=== PATIENT | female | born 1965 | race Caucasian/White ===

== ENCOUNTER 2022-07-27 18:49 | Emergency (ER) | payer OTHER, SELFPAY ==
--- NOTE | ~2022-07-27 | CT_ITS ---
EXAMINATION: CT cervical spine wo con DATE: 07/27/2022 20:07 INDICATION: Neck pain, tender over C6-7 TECHNIQUE: Computed tomography (CT) of the cervical spine was performed without intravenous contrast. Automated exposure control and iterative reconstruction technique were employed. The dose-length pro duct was 157.05 mGy-cm. COMPARISON: None FINDINGS: Vertebral Body Alignment: Intact. Craniocervical and atlantoaxial alignment: Moderate degenerative change. Alignment intact. Osseous structures/fracture: No evidence of a lytic or blastic process in the visualized spine. No e vidence of acute fracture. Cervical soft tissues: The paraspinal soft tissues planes are maintained. Biapical pleural scarring. Mild interlobular septal thickening as can be seen with interstitial edema. Degenerative changes: Moderate degenerative change and uncovertebral joint hypertrophy at C6-7, where there is also moderate central canal stenosis and severe bilateral neural foraminal narrowing. IMPRESSION: No acute fracture or traumatic malalignment in the cervical spine. Reviewed, dictated and finalized at location K.
--- NOTE | ~2022-07-27 | XR_ITS ---
EXAM: XR shoulder LT min 2V DATE: 07/27/2022 19:59 HISTORY: Shoulder pain, eval for dislocation vs fracture . COMPARISON: None available. FINDINGS: Normal mineralization. Comminuted fracture of the proximal left humerus involving portions of the greater and lesser trochanters. Anteroinferior dislocation of the humeral head. No lytic or b lastic lesion. Joint spaces are maintained. No erosion or periosteal change. Soft tissues within norm al limits. IMPRESSION: Comminuted fracture of the left humeral head combined with anteroinferior glenohumeral di slocation. Reviewed, dictated and finalized at location K. IMPRESSION: Comminuted fracture of the left humeral head combined with anteroin ferior glenohumeral dislocation.
--- NOTE | ~2022-07-27 | CT_ITS ---
CT OF RIGHT HAND EXAMINATION: CT shoulder LT wo con DATE: 07/27/2022 20:39 INDICATION: TECHNIQUE: Computed tomography (CT) of the hip was performed without intravenous contrast. Automated exposure control and iterative reconstruction technique were employed. The dose-length product was 44 9.68 mGy-cm. COMPARISON: None FINDINGS: Limitations: None Bones: Interval spontaneous or manual reduction of the glenohumeral joint into anatomic position no o ther fracture detected. Comminuted fracture of the proximal left humerus, with fracture lines involvi ng the lesser and greater trochanters. Slight lateral angulation of the humeral shaft. Mild distracti on of the greater tuberosity fragment. Soft Tissues:Significant soft tissue swelling about the fracture site. Fluid: Moderate volume glenohumeral joint fluid. IMPRESSION: Comminuted fracture of the proximal left humerus, with involvement of the lesser and greater tuberosi ty, mild angulation, and mild distraction of the greater tuberosity fragment Reviewed, dictated and finalized at location K. IMPRESSION: Comminuted fracture of the proximal left humerus, with involvement of the lesse r and greater tuberosity, mild angulation, and mild distraction of the greater tuberosity fragment
--- NOTE | ~2022-07-27 | CT_ITS ---
EXAMINATION: CT brain wo con DATE: 07/27/2022 20:06 INDICATION: head injury . TECHNIQUE: Computed tomography (CT) of the head was performed without intravenous contrast. The mA wa s adjusted according to patient size. Iterative reconstruction technique was employed. The dose-lengt h product was 681.00 mGy-cm. COMPARISON: None FINDINGS: No acute intracranial hemorrhage or extra-axial fluid collection. No hydrocephalus, mass, or herniation. No acute ischemic infarct. Unremarkable dural venous sinus attenuation. No acute osseous abnormality. The aerated spaces are clear. IMPRESSION: No acute intracranial process. Reviewed, dictated and finalized at location K.
[2022-07-27 19:12] VITALS: BP 126/58; PULSE 66; RESP 16; O2SAT 100
--- NOTE | 2022-07-27 19:49 | ED.UPPEXIN ---
HPI - Extremity Injury (Upper) General Chief Complaint: Extremity Injury, Upper Stated Complaint: L. shoulder injury Time Seen by Provider: 07/27/22 19:39 History of Present Illness HPI narrative: This is a 56-year-old female with past medical history of alpha-1 antitrypsin deficiency, who presents to the emergency department after a fall complaining of left shoulder pain. She states she was attempting to catch a male following, when she tripped, landing on her left arm and hitting her head. She denies loss of consciousness, but complained of immediate 10 of 10 left shoulder pain with deformity. This occurred approximately 3 hours prior to arrival. She continues to planing of 8 out of 10 left shoulder pain, worse with direct palpation or movement. Related Data Allergies Allergy/AdvReac Type Severity Reaction Status Date / Time No Known Allergies Allergy Verified 07/27/22 19:17 Review of Systems Review of Systems: CONSTITUTIONAL: Denies fever, chills, or sweats. CARDIOVASCULAR: Denies chest pain, palpitations, or edema. RESPIRATORY: Denies cough or dyspnea. GASTROINTESTINAL: Denies abdominal pain, nausea, vomiting, or diarrhea. GENITOURINARY: Denies dysuria or hematuria. SKIN: Denies rash or itching. MUSCULOSKELETAL: Left shoulder pain denies back pain, or myalgia. NEUROLOGIC: Denies headache, numbness, dizziness, or weakness. PSYCHIATRIC: Denies anxiety or depression. Exam Narrative: GENERAL: Well-developed, well-nourished, in moderate distress due to pain HEAD: Normocephalic, atraumatic. EYES: PERRLA and EOMI. ENT: Dentures in place with lower veneers, ,nares clear, no rhinorrhea or epistaxis. Mucous membranes moist. Oropharynx without tonsillar hypertrophy exudate or other lesions. Mallampati 1, NECK: Tender to palpation over C6-C7, normal range of motion, supple. No adenopathy or masses. No carotid bruits or JVD CHEST: Clear to auscultation. No respiratory distress. No wheezes rales or rhonchi HEART: Regular rate and rhythm. No murmur heard. Normal peripheral pulses. ABDOMEN: Soft, nontender, nondistended, normal active bowel sounds. EXTREMITIES: Deformity of the left shoulder consistent with anterior dislocation, tender to palpation over the anterior medial aspect of the head of humerus, no significant tenderness of humerus, normal range of motion. No edema. SKIN: Warm, dry, no rash. NEURO: No focal deficits. Alert and oriented x3. PSYCH: Normal mood and affect. Course Course Emergency Course: 20:12 - Discussed patient with orthopedic surgeon, Dr. Allen, who on review of imaging is not concerned for dislocation and suspects the deformity is a result of a comminuted humeral head fracture. CT of the shoulder is requested with recommendation to place the patient in a shoulder immobilizer and follow-up in outpatient clinic. 21:40 - CT head negative for intracranial hemorrhage or fracture. CT C-spine negative for fracture. CT shoulder demonstrates comminuted fracture of the humeral head without concern for dislocation. Will place patient in a shoulder immobilizer and discharged with orthopedic surgery follow-up. Discussed return and emergent precautions with the patient and her . They voiced understanding and are comfortable with the plan. All questions answered to their satisfaction. Vital Signs Vital signs: Vital Signs Pulse Rate 66 07/27/22 19:12 Respiratory Rate 16 07/27/22 19:12 Blood Pressure 126/58 L 07/27/22 19:12 Pulse Oximetry 100 07/27/22 19:12 Oxygen Delivery Room Air 07/27/22 19:12 Pulse Rate 67 07/27/22 21:25 Respiratory Rate 14 07/27/22 21:25 Blood Pressure 118/69 07/27/22 21:00 Pulse Oximetry 100 07/27/22 21:25 Oxygen Delivery Room Air 07/27/22 19:12 MDM - Extremity Injury (Upper) MDM Narrative Medical decision making narrative: Plan: Pain control, imaging, dislocation reduction, reassess Differential Diagnosis Differential diagnosis: Likely dislo
[2022-07-27 20:17] VITALS: O2SAT 100
[2022-07-27] MEDS: fentaNYL CITRATE INJ (*CRX) 100 MCG/2 ML VIAL 50 MCG IV PUSH (20:19)
[2022-07-27 20:45] VITALS: BP 110/65; PULSE 58; RESP 10; O2SAT 100
[2022-07-27 20:46] VITALS: PULSE 53; RESP 11; O2SAT 100
[2022-07-27 21:00] VITALS: BP 118/69; PULSE 63; RESP 15; O2SAT 100
[2022-07-27] MEDS: KETOROLAC 30 MG/ML VIAL (*BKC) IM (21:17)
[2022-07-27] MEDS: MORPHINE SULFATE (*CRX) 4 MG/ML INJ IV PUSH (21:17)
[2022-07-27 21:25] VITALS: PULSE 67; RESP 14; O2SAT 100
== END 2022-07-27 23:00 | disposition home or self-care (01) ==
PROVIDERS: Emergency Provider Preventive Medicine Aerospace Medicine
DX: S42.292A Other displaced fracture of upper end of left humerus, initial encounter for closed fracture (principal); S42.252A Displaced fracture of greater tuberosity of left humerus, initial encounter for closed fracture; S42.262A Displaced fracture of lesser tuberosity of left humerus, initial encounter for closed fracture; M54.2 Cervicalgia; W01.0XXA Fall on same level from slipping, tripping and stumbling without subsequent striking against object, initial encounter
CPT/HCPCS: 70450; 72125; 73030; 73200; 96372; 96374; 96375; 99284; J1885; J2270; J3010